=== PATIENT | male | born 1985 | race American Indian/Alaskan Native ===

== ENCOUNTER 2019-01-28 13:04 | Emergency (ER) | payer MEDICAID ==
--- NOTE | 2019-01-28 13:18 | Emergency Department Report ---
Blank Doc - Documentation Documentation: This is a 33-year-old male that presents with abscess to perianal. This initial assessment/diagnostic orders/clinical plan/treatment(s) is/are subject to change based on patient's health status, clinical progression and re- assessment by fellow clinical providers in the ED. Further treatment and workup at subsequent clinical providers discretion. Patient/guardians urged not to elope from the ED as their condition may be serious if not clinically assessed and managed. Initial orders include: 1- Patient sent to [facility] for further evaluation and treatment
[2019-01-28 13:20] VITALS: BP 129/85
--- NOTE | 2019-01-28 14:20 | Emergency Department Report ---
- General Chief complaint: Skin/Abscess/Foreign Body Stated complaint: SWELLING/PAIN IN RECTAL AREA Time Seen by Provider: 01/28/19 13:17 Source: patient, EMS Mode of arrival: Ambulatory Limitations: No Limitations - History of Present Illness Initial comments: Patient is 33-year-old male presents to the emergency room with complaints of an area of swelling to the left gluteus that began 2 days ago. He states that today it opened and he noticed white/blood tinged drainage. He states he had this once before in 2017 and it opened on its own and drained. Denies any fever. His only past medical history schizophrenia. He denies any allergies to medications. he denies any history of diabetes. - Related Data Home Medications Medication Instructions Recorded Confirmed Last Taken Benztropine [Cogentin] 1 mg PO DAILY 02/28/13 08/03/15 08/02/15 18:00 Lurasidone (Nf) [Latuda] 80 mg PO QDAY 05/08/13 08/03/15 08/02/15 18:00 Allergies Allergy/AdvReac Type Severity Reaction Status Date / Time No Known Allergies Allergy Unverified 02/28/13 23:46 Abscess Boil HPI - HPI Chief Complaint: Skin/Abscess/Foreign Body Stated Complaint: SWELLING/PAIN IN RECTAL AREA Time Seen by Provider: 01/28/19 13:17 Home Medications: Home Medications Medication Instructions Recorded Confirmed Last Taken Benztropine [Cogentin] 1 mg PO DAILY 02/28/13 08/03/15 08/02/15 18:00 Lurasidone (Nf) [Latuda] 80 mg PO QDAY 05/08/13 08/03/15 08/02/15 18:00 Allergies/Adverse Reactions: Allergies Allergy/AdvReac Type Severity Reaction Status Date / Time No Known Allergies Allergy Unverified 02/28/13 23:46 ED Review of Systems ROS: Stated complaint: SWELLING/PAIN IN RECTAL AREA Other details as noted in HPI Comment: All other systems reviewed and negative ED Past Medical Hx - Past Medical History Hx Psychiatric Treatment: Yes (schizophrenia) - Surgical History Hx Appendectomy: Yes Additional Surgical History: Surgery to Right Knee - Social History Smoking Status: Current Every Day Smoker Substance Use Type: None - Medications Home Medications: Home Medications Medication Instructions Recorded Confirmed Last Taken Type Benztropine [Cogentin] 1 mg PO DAILY 09/07/1208/03/15 08/02/15 18:00 History Lurasidone (Nf) [Latuda] 80 mg PO QDAY 05/08/13 08/03/15 08/02/15 18:00 History ED Physical Exam - General Limitations: No Limitations General appearance: alert, in no apparent distress - Head Head exam: Present: atraumatic, normocephalic - Eye Eye exam: Present: normal appearance - ENT ENT exam: Present: mucous membranes moist - Neurological Exam Neurological exam: Present: alert, oriented X3 - Psychiatric Psychiatric exam: Present: normal affect, normal mood - Skin Skin exam: Present: warm, dry, other (1 cm area of induration and fluctuance to the left gluteus, no surrounding cellulitis, life support technician: VENKAT Bell) ED Course Vital Signs 01/28/19 13:18 Temperature 97.5 F L Pulse Rate 104 H Respiratory 20 Rate Blood Pressure 129/85 O2 Sat by Pulse 98 Oximetry - I & D Left Buttocks Type of Procedure: Simple Site: left gluteus Blade Size: 11 I & D Procedure: betadine prep, sterile drapes applied, sterile dressing applied Progress: betadine prep, sterile dressing applied, 1 cc of 1% lidocaine without epi used, 0.5 cm incision made, no drainage expressed, pt tolerated well, no complications, bleeding controlled - Laceration /Wound Repair Left Buttocks Wound Length (cm): 1 ED Medical Decision Making - Medical Decision Making Patient is 33-year-old male presents to the emergency room with complaints of an area of swelling to the left gluteus that began 2 days ago. He states that today it opened and he noticed white/blood tinged drainage. He states he had this once before in 2017 and it opened on its own and drained. Denies any fever . His only past medical history schizophrenia. He denies any allergies to medications. he denies any history of diabetes. on exam: 1 cm area of induration and fluctuance to the left gluteus, no surrounding cellulitis, life support technician: VENKAT Bell, life support technician VENKAT Bell present during I&D performed per procedure note, no drainage expressed. appears to be a tissue growth. will have pt see a loan inspector for further evaluation and management. Please follow up with a loan inspector the next 2-3 days. listed one on pts paperwork. Follow-up with primary care doctor the next 2-3 days. Return to the emergency room for any new or worsening symptoms. - Differential Diagnosis abscess, cellulitis, skin lesion Critical care attestation.: If time is entered above; I have spent that time in minutes in the direct care of this critically ill patient, excluding procedure time. ED Disposition Clinical Impression: Skin lesion Disposition: DC-01 TO HOME OR SELFCARE Is pt being admited?: No Does the pt Need Aspirin: No Condition: Stable Additional Instructions: Please follow up with a loan inspector the next 2-3 days. listed one below. Follow-up with primary care doctor the next 2-3 days. Return to the emergency room for any new or worsening symptoms. Dr. Garrett Ye, dermatology [address] [place], [place] [id number] Referrals: THOMAS GERBER MD [Primary Care Provider] - 2-3 Days Time of Disposition: 15:44 Print Language: BULGARIAN
== END 2019-01-28 16:03 | disposition home or self-care (01) ==
LOC: ED 13:04
DX: L02.31 Cutaneous abscess of buttock (principal); L98.9 Disorder of the skin and subcutaneous tissue, unspecified; F20.9 Schizophrenia, unspecified; F17.200 Nicotine dependence, unspecified, uncomplicated

== ENCOUNTER 2021-05-21 10:54 | Emergency (ER) | payer MEDICAID ==
[2021-05-21] MEDS ORDERED: ONDANSETRON 4 MG/2 ML INJ IV ONE (11:39)
[2021-05-21] MEDS ORDERED: MORPHINE 4 MG/1 ML INJ IV ONE (11:39)
[2021-05-21 12:14] LABS: Basophils % (Auto) 0.3 % (0.0-1.8); Eosinophils # (Auto) 0.1 K/mm3 (0.0-0.4); Hematocrit 44.3 % (35.5-45.6); Hemoglobin 14.6 gm/dl (11.8-15.2); Lymphocytes # (Auto) 1.9 K/mm3 (1.2-5.4); Lymphocytes % (Auto) 19.8 % (13.4-35.0); Mean Corpuscular HGB Conc 33 % (32-34); Mean Corpuscular Volume 83 fl (84-94); Monocytes # (Auto) 0.8 K/mm3 (0.0-0.8); Monocytes % (Auto) 8.5 % (0.0-7.3); Platelet Count 361 K/mm3 (140-440); Red Blood Count 5.35 M/mm3 (3.65-5.03); Red Cell Distribution Width 14.7 % (13.2-15.2)
--- NOTE | 2021-05-21 12:19 | Emergency Department Report ---
ED General Adult HPI - General Chief complaint: Back Pain/Injury Stated complaint: BACK PAIN Time Seen by Provider: 05/21/21 11:25 Source: patient Mode of arrival: Ambulatory Limitations: No Limitations - History of Present Illness Initial comments: Patient is a 35-year-old male presents emergency room with complaints of pain in his perirectal region that began a couple days ago. He denies any fall or injury. He denies any swelling or feeling any lumps. He denies any fever, drainage, numbness, weakness, bowel or bladder incontinence. He denies any hematochezia, melena, hematemesis. Past medical history of schizophrenia. No allergies to medications. Severity scale (0 -10): 10 - Related Data Home Medications Medication Instructions Recorded Confirmed Last Taken Benztropine [Cogentin] 1 mg PO DAILY 02/28/13 08/03/15 08/02/15 18:00 Lurasidone (Nf) [Latuda] 80 mg PO QDAY 05/08/13 08/03/15 08/02/15 18:00 Previous Rx's Medication Instructions Recorded Last Taken Type Naproxen 375 mg PO BID PRN #14 tablet 05/21/21 Unknown Rx Prednisone [predniSONE 10 mg 10 mg PO .TAPER #1 tab.ds.pk 05/21/21 Unknown Rx (6-Day Pack, 21 Tabs)] methOCARBAMOL [Robaxin TAB] 500 mg PO BID PRN #14 tab 05/21/21 Unknown Rx Allergies Allergy/AdvReac Type Severity Reaction Status Date / Time No Known Allergies Allergy Unverified 02/28/13 23:46 ED Review of Systems ROS: Stated complaint: BACK PAIN Other details as noted in HPI Comment: All other systems reviewed and negative ED Past Medical Hx - Past Medical History Previous Medical History?: No Hx Psychiatric Treatment: Yes (schizophrenia) - Surgical History Past Surgical History?: Yes Hx Appendectomy: Yes Additional Surgical History: Surgery to Right Knee - Social History Smoking Status: Current Every Day Smoker Substance Use Type: None - Medications Home Medications: Home Medications Medication Instructions Recorded Confirmed Last Taken Type Benztropine [Cogentin] 1 mg PO DAILY 02/28/13 08/03/15 08/02/15 18:00 History Lurasidone (Nf) [Latuda] 80 mg PO QDAY 05/08/13 08/03/15 08/02/15 18:00 History Naproxen 375 mg PO BID PRN #14 tablet 05/21/21 Unknown Rx Prednisone [predniSONE 10 mg 10 mg PO .TAPER #1 tab.ds.pk 05/21/21 Unknown Rx (6-Day Pack, 21 Tabs)] methOCARBAMOL [Robaxin TAB] 500 mg PO BID PRN #14 tab 05/21/21 Unknown Rx ED Physical Exam - General Limitations: No Limitations General appearance: alert, in no apparent distress - Head Head exam: Present: atraumatic, normocephalic - Eye Eye exam: Present: normal appearance - ENT ENT exam: Present: mucous membranes moist - Rectal Rectal exam: Present: other (ttp to the superior portion of the gluteal cleft, no induration, no edema, no erythema, no fluctuance, no hemorrhoids, veterinary practice manager: VENKAT overton) - Neurological Exam Neurological exam: Present: alert, oriented X3 - Psychiatric Psychiatric exam: Present: normal affect, normal mood - Skin Skin exam: Present: warm, dry, intact ED Course Vital Signs 05/21/21 05/21/21 05/21/21 10:58 11:56 15:06 Temperature 98.0 F 97.9 F Pulse Rate 113 H 94 H Respiratory 16 18 Rate Blood Pressure 118/61 132/83 [Left] O2 Sat by Pulse 98 98 98 Oximetry ED Medical Decision Making - Lab Data Result diagrams: 05/21/21 12:11 05/21/21 11:39 Lab Results 05/21/21 05/21/21 Range/Units 11:39 12:11 WBC 9.5 (4.5-11.0) K/mm3 RBC 5.35 H (3.65-5.03) M/mm3 Hgb 14.6 (11.8-15.2) gm/dl Hct 44.3 (35.5-45.6) % MCV 83 L (84-94) fl MCH 27 L (28-32) pg MCHC 33 (32-34) % RDW 14.7 (13.2-15.2) % Plt Count 361 (140-440) K/mm3 Lymph % (Auto) 19.8 (13.4-35.0) % Antelope % (Auto) 8.5 H (0.0-7.3) % Eos % (Auto) 1.0 (0.0-4.3) % Baso % (Auto) 0.3 (0.0-1.8) % Lymph # (Auto) 1.9 (1.2-5.4) K/mm3 Antelope # (Auto) 0.8 (0.0-0.8) K/mm3 Eos # (Auto) 0.1 (0.0-0.4) K/mm3 Baso # (Auto) 0.0 (0.0-0.1) K/mm3 Seg Neutrophils % 70.4 H (40.0-70.0) % Seg Neutrophils # 6.7 (1.8-7.7) K/mm3 Sodium 139 (137-145) mmol/L Potassium 4.3 (3.6-5.0) mmol/L Chloride 103.1 (98-107) mmol/L Carbon Dioxide 22 (22-30) mmol/L Anion Gap 18 mmol/L BUN 7 L (9-20) mg/dL Creatinine 0.9 (0.8-1.3) mg/dL Estimated GFR > 60 ml/min BUN/Creatinine Ratio 8 % Glucose 107 H (75-100) mg/dL Calcium 9.0 (8.4-10.2) mg/dL Total Bilirubin 0.20 (0.1-1.2) mg/dL AST 28 (5-40) units/L ALT 51 (7-56) units/L Alkaline Phosphatase 81 (35-129) units/L Total Protein 8.5 H (6.3-8.2) g/dL Albumin 4.6 (3.9-5) g/dL Albumin/Globulin Ratio 1.2 % Vital Signs 05/21/21 05/21/21 05/21/21 10:58 11:56 15:06 Temperature 98.0 F 97.9 F Pulse Rate 113 H 94 H Respiratory 16 18 Rate Blood Pressure 118/61 132/83 [Left] O2 Sat by Pulse 98 98 98 Oximetry - Radiology Data Radiology results: report reviewed Ordering Physician: MATHIEU FAGAN Date of Service: 05/21/21 Procedure(s): CT abdomen pelvis w con Accession Number(s): [id number] cc: MATHIEU FAGAN CT ABDOMEN AND PELVIS WITH CONTRAST INDICATION: rectal pain OMNI 300 100ML. TECHNIQUE: Axial CT images were obtained through the abdomen and pelvis after 100 cc IV contrast. All CT scans at this location are performed using CT dose reduction for ALARA by means of automated e xposure control. COMPARISON: None available. FINDINGS: LOWER CHEST: No significant abnormality. LIVER: No significant abnormality. GALLBLADDER: No significant abnormality. BILE DUCTS: No significant abnormality. PANCREAS: No significant abnormality. SPLEEN: No significant abnormality. ADRENALS: No significant abnormality. RIGHT KIDNEY and URETER: 2.2 cm simple cyst. LEFT KIDNEY and URETER: Simple 1.8 cm cyst. STOMACH and SMALL BOWEL: No significant abnormality. COLON: No significant abnormality. APPENDIX: No significant abnormality. PERITONEUM: No free fluid. No free air. No fluid collection. LYMPH NODES: No significant adenopathy. AORTA and ARTERIES: No significant abnormality. IVC and VEINS: No significant abnormality. URINARY BLADDER: No significant abnormality. REPRODUCTIVE ORGANS: No significant abnormality. ADDITIONAL FINDINGS: None. SKELETAL SYSTEM: No significant abnormality. IMPRESSION: 1. No significant abnormality. Signer Name: Wesly Robles MD Signed: 05/21/2021 2:22 PM Workstation Name: [id number] Transcribed By: TL Dictated By: Wesly Robles MD Electronically Authenticated By: Wesly Robles MD Signed Date/Time: 05/21/211421 DD/ 19 TD/TT: - Medical Decision Making Patient is a 35-year-old male presents emergency room with complaints of pain in his perirectal region that began a couple days ago. He denies any fall or injury. He denies any swelling or feeling any lumps. He denies any fever, drai nage, numbness, weakness, bowel or bladder incontinence. He denies any hematochezia, melena, hematemesis. Past medical history of schizophrenia. No allergies to medications. Vitals with tachycardia which improved upon repeat. On exam ttp to the superior portion of the gluteal cleft, no induration, no edema, no erythema, no fluctuance, no hemorrhoids, veterinary practice manager: VENKAT overton. Labs are stable. CT abdomen pelvis IV contrast 1. No significant abnormality. Patient given medications on the emergency room with improvement of his symptoms. Symptoms could be related to sciatica versus coccyx pain. Patient given prescription for medications. Patient be referred to primary care and neurosurgery. Discussed return precautions. Advised patient Please take medication as prescribed. Follow-up with your primary care doctor. Follow-up with clinical rehab specialist. Return to emergency room for any new or worsening symptoms. Critical care attestation.: If time is entered above; I have spent that time in minutes in the direct care of this critically ill patient, excluding procedure time. ED Disposition Clinical Impression: Rectal pain, Sacral pain Disposition: 01 HOME / SELF CARE / HOMELESS Is pt being admited?: No Does the pt Need Aspirin: No Condition: Stable Additional Instructions: Please take medication as prescribed. Follow-up with your primary care doctor. Follow-up with clinical rehab specialist. Return to emergency room for any new or worsening symptoms. Prescriptions: Naproxen 375 mg PO BID PRN #14 tablet PRN Reason: pain Prednisone [predniSONE 10 mg (6-Day Pack, 21 Tabs)] 10 mg PO .TAPER #1 tab.ds.pk methOCARBAMOL [Robaxin TAB] 500 mg PO BID PRN #14 tab PRN Reason: muscle spasm/pain Referrals: GUERRERO PAPPAS MD [Staff Physician] - 3-5 Days [facility] [Provider Group] - 3-5 Days IAN PATEL II, MD [Staff Physician] - 3-5 Days Time of Disposition: 14:42 Print Language: NORTHERN IRISH
[2021-05-21 13:02] LABS: Alanine Aminotransferase 51 units/L (7-56); Albumin 4.6 g/dL (3.9-5); BUN/Creatinine Ratio 8; Blood Urea Nitrogen 7 mg/dL (9-20); Hemolysis Index 6
--- NOTE | 2021-05-21 14:26 | Cat Scan Report ---
CT ABDOMEN AND PELVIS WITH CONTRAST INDICATION: rectal pain OMNI 300 100ML. TECHNIQUE: Axial CT images were obtained through the abdomen and pelvis after 100 cc IV contrast. All CT scans at this location are performed using CT dose reduction for ALARA by means of automated exposure contr ol. COMPARISON: None available. FINDINGS: LOWER CHEST: No significant abnormality. LIVER: No significant abnormality. GALLBLADDER: No significant abnormality. BILE DUCTS: No significant abnormality. PANCREAS: No significant abnormality. SPLEEN: No significant abnormality. ADRENALS: No significant abnormality. RIGHT KIDNEY and URETER: 2.2 cm simple cyst. LEFT KIDNEY and URETER: Simple 1.8 cm cyst. STOMACH and SMALL BOWEL: No significant abnormality. COLON: No significant abnormality. APPENDIX: No significant abnormality. PERITONEUM: No free fluid. No free air. No fluid collection. LYMPH NODES: No significant adenopathy. AORTA and ARTERIES: No significant abnormality. IVC and VEINS: No significant abnormality. URINARY BLADDER: No significant abnormality. REPRODUCTIVE ORGANS: No significant abnormality. ADDITIONAL FINDINGS: None. SKELETAL SYSTEM: No significant abnormality. IMPRESSION: 1. No significant abnormality. Signer Name: Wesly Robles MD Signed: 05/21/2021 2:22 PM Workstation Name: [id number]
[2021-05-21 15:07] VITALS: BP 132/83
== END 2021-05-21 15:11 | disposition home or self-care (01) ==
LOC: ED 10:54
DX: K62.89 Other specified diseases of anus and rectum (principal); M54.9 Dorsalgia, unspecified; F17.200 Nicotine dependence, unspecified, uncomplicated
CPT/HCPCS: 36415; 74177; 80053; 85025; 96374; 96375; 99284; J2270; J2405; Q9967

== ENCOUNTER 2022-01-21 18:24 | Emergency (ER) | payer MEDICAID ==
[2022-01-21 19:04] VITALS: BP 146/88
--- NOTE | 2022-01-22 01:27 | Emergency Department Report ---
ED Male HPI - General Chief complaint: Abdominal Pain Stated complaint: HEADACHE Time Seen by Provider: 01/21/22 23:55 Source: patient Mode of arrival: Ambulatory Limitations: No Limitations - History of Present Illness Initial comments: 36-year-old -[place] female department complaining of 1+ year history of suspicion of STI reporting pruritic bumps to his testicles off and on and occasional burning with urination. No fever, chills, sweats. No cough no hematuria no hematemesis hematochezia no nausea, no vomiting, no diarrhea, no abdominal trauma. Despite the triagereports no issues with headaches emergency department and had an STD complaint that he wished to conceal Severity: mild Consistency: constant denies: urinary retention, blood in urine, nausea/vomiting, incontinence - Related Data Home Medications Medication Instructions Recorded Confirmed Last Taken Benztropine [Cogentin] 1 mg PO DAILY 02/28/13 08/03/15 08/02/15 18:00 Lurasidone (Nf) [Latuda] 80 mg PO QDAY 05/08/13 08/03/15 08/02/15 18:00 Previous Rx's Medication Instructions Recorded Last Taken Type Naproxen 375 mg PO BID PRN #14 tablet 05/21/21 Unknown Rx Prednisone [predniSONE 10 mg 10 mg PO .TAPER #1 tab.ds.pk 05/21/21 Unknown Rx (6-Day Pack, 21 Tabs)] methOCARBAMOL [Robaxin TAB] 500 mg PO BID PRN #14 tab 05/21/21 Unknown Rx Allergies Allergy/AdvReac Type Severity Reaction Status Date / Time No Known Allergies Allergy Unverified 02/28/13 23:46 ED Review of Systems ROS: Stated complaint: HEADACHE Other details as noted in HPI Comment: All other systems reviewed and negative ED Past Medical Hx - Past Medical History Hx Diabetes: (prediabetes) Hx Psychiatric Treatment: Yes (schizophrenia) - Surgical History Hx Appendectomy: Yes Additional Surgical History: Surgery to Right Knee - Social History Smoking Status: Current Every Day Smoker Substance Use Type: None - Medications Home Medications: Home Medications Medication Instructions Recorded Confirmed Last Taken Type Benztropine [Cogentin] 1 mg PO DAILY 02/28/13 08/03/15 08/02/15 18:00 History Lurasidone (Nf) [Latuda] 80 mg PO QDAY 05/08/13 08/03/15 08/02/15 18:00 History Naproxen 375 mg PO BID PRN #14 tablet 05/21/21 Unknown Rx Prednisone [predniSONE 10 mg 10 mg PO .TAPER #1 tab.ds.pk 05/21/21 Unknown Rx (6-Day Pack, 21 Tabs)] methOCARBAMOL [Robaxin TAB] 500 mg PO BID PRN #14 tab 05/21/21 Unknown Rx ED Physical Exam - General Limitations: No Limitations General appearance: alert, in no apparent distress - Head Head exam: Present: atraumatic, normocephalic - Eye Eye exam: Present: normal appearance, PERRL Pupils: Present: normal accommodation - ENT ENT exam: Present: normal exam, normal orophraynx, mucous membranes moist, TM's normal bilaterally - Neck Neck exam: Present: normal inspection, full ROM - Respiratory Respiratory exam: Present: normal lung sounds bilaterally. Absent: respiratory distress, wheezes, rales, rhonchi, chest wall tenderness, accessory muscle use - Cardiovascular Cardiovascular Exam: Present: regular rate, normal rhythm. Absent: systolic murmur, diastolic murmur, rubs, gallop - GI/Abdominal GI/Abdominal exam: Present: soft, normal bowel sounds - Rectal Rectal exam: Present: deferred - Extremities Exam Extremities exam: Present: normal inspection, normal capillary refill - Back Exam Back exam: Present: normal inspection. Absent: CVA tenderness (R), CVA tenderness (L) - Neurological Exam Neurological exam: Present: alert, oriented X3, CN II-XII intact - Psychiatric Psychiatric exam: Present: normal affect, normal mood. Absent: anxious, flat affect - Skin Skin exam: Present: warm, dry, intact, normal color. Absent: rash, cyanosis, diaphoretic ED Course Vital Signs 01/21/22 19:01 Temperature 97.9 F Pulse Rate 90 Respiratory 18 Rate Blood Pressure 146/88 [Right] O2 Sat by Pulse 100 Oximetry Critical care attestation.: If time is entered above; I have spent that time in minutes in the direct care of this critically ill patient, excluding procedure time. ED Disposition Clinical Impression: Possible exposure to STD Disposition: HOME / SELF CARE / HOMELESS Is pt being admited?: No Does the pt Need Aspirin: No Condition: Stable Referrals: [facility] [Outside] - 3-5 Days
== END 2022-01-22 02:07 | disposition home or self-care (01) ==
LOC: ED 18:24
DX: Z20.2 Contact with and (suspected) exposure to infections with a predominantly sexual mode of transmission (principal); F20.9 Schizophrenia, unspecified; Z98.890 Other specified postprocedural states; F17.290 Nicotine dependence, other tobacco product, uncomplicated
CPT/HCPCS: 99281